=== PATIENT | male | born 1980 | race Caucasian/White ===

== ENCOUNTER 2017-09-26 06:17 | Day surgery (SDC) | payer BC ==
[~2017-09-26] VITALS: Ht 182.9 cm; Wt 117.9 kg
--- NOTE | ~2017-09-26 | H ---
[facility] [place] [address] HISTORY AND PHYSICAL Name: FARHANA LEE Room #: 150-4 [facility]..#: [id number] Admission: 09/26/17 Attend Phys: Denys Sanchez MD Discharge: Date of : 80 Report #: [id number] THIS REPORT FOR: //name// CC: [facility] physician/PCP eDnys Sanchez DATE OF SERVICE: 09/26/2017 The patient is having difficulty breathing through his nose. He has been diagnosed with deviated nasal septum in the past. He has dry steroid nasal spray, Antivert, allergy medications, but they do not tend to work. He thinks that his airway shifts from side to side, but his entire nose is usually completely clogged at night when he is trying to sleep. PAST MEDICAL HISTORY: Otherwise significant for reflux. MEDICATIONS: His only medication is Prilosec. ALLERGIES: He has no known drug allergies. PHYSICAL EXAMINATION: He has a very significantly deviated nasal septum to the right side with quite a bit of congestion. The left side is clear with a good airway. His oropharynx and oral cavity were clear. He had no adenopathy or masses in his neck. IMPRESSION: Deviated nasal septum with nasal airway obstruction. PLAN: Nasal septoplasty. <ELECTRONICALLY SIGNED> By: Denys Sanchez MD 09/26/17 0826 [id number] Denys Sanchez MD /nt
--- NOTE | ~2017-09-26 | O ---
[facility] [place] [address] OPERATIVE REPORT Name: FARHANA LEE Room #: DEP [facility]..#: [id number] Admission: 09/26/17 Attend Phys: Denys Sanchez MD Discharge: 09/26/17 Date of : 80 Report #: [id number] THIS REPORT FOR: //name// CC: [facility] physician/PCP Denys Sanchez DATE OF SERVICE: 09/26/2017 PREOPERATIVE DIAGNOSES: Deviated nasal septum, with nasal airway obstruction. POSTOPERATIVE DIAGNOSES: Deviated nasal septum, with nasal airway obstruction. OPERATIVE PROCEDURE: Nasal septoplasty. ANESTHESIA: General by laryngeal mask. DESCRIPTION OF PROCEDURE: The patient was taken to the operating room and placed in supine position. General anesthesia was induced by laryngeal mask. Once adequate general anesthesia was obtained, local nasal anesthesia was induced by some mucoperichondrial injection of 1% lidocaine with 1:100,000 epinephrine and topical application of cocaine solution. The patient was then draped in a sterile manner. The patient had nasal septal deviation primarily to the right side. A hemitransfixion incision was placed on the right side of the nose, and the mucoperichondrium and mucoperiosteum were elevated off the septum. The cartilage was incised in front of the bony cartilaginous junction, and a portion of cartilage and bone was removed from the mid portion of the septum. There is also septal spur along the floor consisting of hypertrophic cartilage and a fracture of the maxillary crest. The cartilage was removed using long strip at the maxillary crest, was chiseled and rongeured. After these maneuvers, the septum sat more in the midline. Hemitransfixion incision was then closed with 4-0 chromic suture and a 4-0 plain mattress sutures placed as well. The patient tolerated the procedure well. BLOOD LOSS: Approximately 5 mL. The patient was then awoken and taken to the recovery room in stable condition for postoperative monitoring. <ELECTRONICALLY SIGNED> By: Denys Sanchez MD 10/31/17 0753 [id number] Denys Sanchez MD /nt
[~2017-09-26 06:17] MED LIST: NASACORT10.8 ML NASAL; PRILOSEC OTC20 MG PO; SUDAFED 12 HOU120 MG PO
[2017-09-26 13:21] VITALS: BP 130/60
== END 2017-09-26 11:01 | disposition home or self-care (01) ==
LOC: TBA 06:17 → OR 06:17 → TBA 06:18 → OR 11:01
DX: J34.2 Deviated nasal septum (principal); K21.9 Gastro-esophageal reflux disease without esophagitis; J34.89 Other specified disorders of nose and nasal sinuses; Z98.890 Other specified postprocedural states; Z79.899 Other long term (current) drug therapy
CPT/HCPCS: 50010; 50101; 50386; 50398; 56524; 56528; 62110; 62900; 70005